=== PATIENT | male | born 1985 | race African-American/Black ===

== ENCOUNTER 2018-12-20 08:32 | Emergency (ER) | payer MEDICAID ==
[~2018-12-20] VITALS: Ht 175.3 cm; Wt 70.0 kg
[~2018-12-20 08:32] MED LIST: FOLIC ACID; MULTIVITAMINS; SUDAFED; VITAMIN D
[2018-12-20] MEDS ORDERED: SODIUM CHLORIDE 0.9% 1,000 ML IV ONE (09:14)
[2018-12-20] MEDS ORDERED: TERBUTALINE SULFATE 1MG/ML VIAL SUBCUT ONE ×2 (09:15)
[2018-12-20] MEDS ORDERED: LIDOCAINE HCL 4% CREAM 76GM TUBE TP ONE (09:45)
[2018-12-20 10:58] VITALS: BP 122/76
== END 2018-12-20 11:00 | disposition home or self-care (01) ==
LOC: ER 08:32
DX: N48.30 Priapism, unspecified (principal); Z90.49 Acquired absence of other specified parts of digestive tract; Z86.2 Personal history of diseases of the blood and blood-forming organs and certain disorders involving the immune mechanism; Z88.0 Allergy status to penicillin; Z79.899 Other long term (current) drug therapy
CPT/HCPCS: 96372; 99283; J3105; J7030; Z7610

== ENCOUNTER 2018-12-25 00:35 | Inpatient (IN) | payer MEDICAID ==
[~2018-12-25] VITALS: Ht 175.3 cm; Wt 70.3 kg
[2018-12-25] MEDS ORDERED: MORPHINE SULFATE 4 MG/ML CPJ (NOT FOR IM USE) IV STA (01:49)
[2018-12-25] MEDS ORDERED: SODIUM CHLORIDE 0.9% 1,000 ML IV ONE (01:49)
[2018-12-25] MEDS ORDERED: DIPHENHYDRAMINE 50MG/ML VIAL IV ONE ×2 (02:00→04:45)
[2018-12-25 02:08] LABS: CHLORIDE 104 mEq/L (98-107)
[2018-12-25 02:10] LABS: HEMATOCRIT. 28.4 % (42.0-52.0); HEMOGLOBIN. 9.9 g/dL (14.0-18.0); MEAN CORPUSCULAR HEMOGLOBIN 33.5 pg (28.0-32.0); MEAN CORPUSCULAR VOLUME 96.5 fL (80.0-94.0); PLATELET 350 x1000/uL (130-400); RED BLOOD CELL COUNT 2.94 mill/uL (4.7-6.1); RED CELL DISTRIBUTION WIDTH 19.3 % (11.6-14.6)
[2018-12-25 04:02] LABS: NUCLEATED RED BLOOD CELLS 2 /100 WBC; PLATELET ESTIMATE NORMAL
[2018-12-25 04:17] LABS: CLARITY URINE CLEAR (CLEAR); COLOR URINE YELLOW (YELLOW); KETONES URINE 2+ (NEGATIVE); LEUKOCYTE ESTERASE URINE NEGATIVE (NEGATIVE); NITRITE URINE NEGATIVE (NEGATIVE); OCCULT BLOOD URINE NEGATIVE (NEGATIVE); PROTEIN URINE NEGATIVE (NEGATIVE); SPECIFIC GRAVITY URINE 1.009 (1.005-1.030)
[2018-12-25] MEDS ORDERED: MORPHINE SULFATE 4 MG/ML CPJ (NOT FOR IM USE) IV ONE (04:45)
[2018-12-25] MEDS ORDERED: TERBUTALINE SULFATE 2.5MG TABLET PO STA (06:23)
[2018-12-25] MEDS ORDERED: TERBUTALINE SULFATE 1MG/ML VIAL SUBCUT ONE (07:00)
[2018-12-25 08:00] VITALS: BP 135/92
[2018-12-25] MEDS ORDERED: ONDANSETRON HCL 4MG/2ML INJ IV PRN (08:45)
[2018-12-25] MEDS ORDERED: SODIUM CHLORIDE 0.9% 1,000 ML IV SCH (08:45)
[2018-12-25] MEDS ORDERED: ACETAMINOPHEN 325MG TABLET PO PRN (08:45)
[2018-12-25] MEDS ORDERED: MORPHINE SULFATE 2 MG/ML CPJ (NOT FOR IM USE) IV PRN (08:45)
[2018-12-25] MEDS ORDERED: FOLIC ACID 1MG TABLET PO SCH (09:00)
[2018-12-25 09:06] VITALS: BP 135/92
[2018-12-25] MEDS: HYDROMORPHONE HCL/PF 2MG/ML CPJ IV PRN ×5 (10:27→19:50)
[2018-12-25 12:00] VITALS: BP 131/85
[2018-12-25 16:00] VITALS: BP 135/78
[2018-12-25] MEDS ORDERED: TERBUTALINE SULFATE 1MG/ML VIAL SUBCUT NR (16:00)
[2018-12-25 17:39] VITALS: BP 135/78
[2018-12-25 20:00] VITALS: BP 123/85
== END 2018-12-25 20:50 | disposition home or self-care (01) | DRG 662 ==
LOC: ER 00:35 → 6EST 04:52 → EDBEDREQ 04:54 → EDBEDREQTM 04:54 → ENRESERV 07:02
PROVIDERS: ADMIT Internal Medicine; ATTEND Internal Medicine
DX: D57.00 Hb-SS disease with crisis, unspecified (principal); D72.829 Elevated white blood cell count, unspecified; Z88.0 Allergy status to penicillin; N48.30 Priapism, unspecified
CPT/HCPCS: 36415; 71045; 81003; 84145; 85044; 93970; 99285; J1170; J1200; J2270; J3105; J7030

== ENCOUNTER 2018-12-29 08:28 | Emergency (ER) | payer MEDICAID ==
[~2018-12-29] VITALS: Ht 175.3 cm; Wt 70.0 kg
[2018-12-29] MEDS ORDERED: ONDANSETRON HCL 4MG/2ML INJ IV STA (09:08)
[2018-12-29] MEDS ORDERED: SODIUM CHLORIDE 0.9% 1,000 ML IV ONE (09:08)
[2018-12-29] MEDS ORDERED: MORPHINE SULFATE 4 MG/ML CPJ (NOT FOR IM USE) IV STA (09:08)
[2018-12-29] MEDS ORDERED: TERBUTALINE SULFATE 2.5MG TABLET PO STA (09:14)
[2018-12-29] MEDS ORDERED: TERBUTALINE SULFATE 1MG/ML VIAL SUBCUT ONE ×2 (11:15→12:15)
[2018-12-29 12:32] VITALS: BP 143/71
== END 2018-12-29 14:18 | disposition home or self-care (01) ==
LOC: ER 08:28
DX: N48.30 Priapism, unspecified (principal); D57.1 Sickle-cell disease without crisis; Z88.0 Allergy status to penicillin; Z79.899 Other long term (current) drug therapy
CPT/HCPCS: 96372; 99283; J3105; J7030

== ENCOUNTER 2022-12-26 21:24 | Emergency (ER) | payer MEDICAID ==
[~2022-12-26] VITALS: Ht 175.3 cm; Wt 75.0 kg
[2022-12-26 21:49] VITALS: O2SAT 95
[2022-12-26] MEDS ORDERED: HYDROMORPHONE HCL/PF 2MG/ML CPJ IV ONE (22:45)
[2022-12-26] MEDS ORDERED: ONDANSETRON HCL 4MG/2ML INJ IV ONE (22:45)
[2022-12-26] MEDS ORDERED: SODIUM CHLORIDE 0.45% 1,000 ML IV ONE (22:45)
[2022-12-26 23:10] LABS: HEMATOCRIT. 28.1 % (42.0-52.0); HEMOGLOBIN. 9.8 g/dL (14.0-18.0); MEAN CORPUSCULAR HEMOGLOBIN 32.1 pg (28.0-32.0); MEAN CORPUSCULAR HGB CONC 35.1 g/dL (31.0-37.0); MEAN CORPUSCULAR VOLUME 91.6 fL (80.0-94.0); MEAN PLATELET VOLUME 8.3 fl (7.4-10.4); PLATELET 315 x1000/uL (130-400); RED BLOOD CELL COUNT 3.07 mill/uL (4.7-6.1); RED CELL DISTRIBUTION WIDTH 20.7 % (11.6-14.6); WHITE BLOOD COUNT 16.1 x1000/uL (4.5-11.0)
[2022-12-26 23:11] LABS: DIFFERENTIAL COMMENT 1
[2022-12-26 23:12] LABS: CHLORIDE 109 mEq/L (98-107); INDEX HEMOLYSI 3 (1-3); INDEX ICTERIC 2 (1-4); INDEX LIPEMIC 1 (1-3); POTASSIUM 3.9 mEq/L (3.5-5.1); SODIUM 140 mEq/L (136-145)
[2022-12-26 23:25] LABS: ALANINE AMINOTRANSFERASE 26 IU/L (13-61); ALBUMIN 4.5 g/dL (3.4-5.0); ASPARTATE AMINOTRANSFERASE 41 IU/L (15-37); BILIRUBIN TOTAL 2.2 mg/dL (0.1-1.0); CALCIUM 9.5 mg/dL (8.5-10.1); CARBON DIOXIDE 26 mEq/L (21-32); CREATININE 0.9 mg/dL (0.6-1.3); GLUCOSE 133 mg/dL (70-105); PROTEIN TOTAL 7.7 g/dL (6.0-8.3); UREA NITROGEN BLOOD 11 mg/dL (7-21)
[2022-12-27 00:07] LABS: ANISOCYTOSIS 2+; NUCLEATED RED BLOOD CELLS 1 /100 WBC; OVALOCYTES 1+; PLATELET ESTIMATE NORMAL
[2022-12-27 00:08] LABS: HYPOCHROMASIA 2+; TARGET CELLS FEW
[2022-12-27] MEDS ORDERED: HYDROMORPHONE HCL/PF 2MG/ML CPJ IV ONE (00:30)
[2022-12-27 01:09] LABS: CLARITY URINE CLEAR (CLEAR); COLOR URINE DARK YELLOW (YELLOW); GLUCOSE URINE NEGATIVE (NEGATIVE); KETONES URINE NEGATIVE (NEGATIVE); LEUKOCYTE ESTERASE URINE NEGATIVE (NEGATIVE); NITRITE URINE NEGATIVE (NEGATIVE); OCCULT BLOOD URINE NEGATIVE (NEGATIVE); PH URINE 8.5 (4.5-8.0); PROTEIN URINE NEGATIVE (NEGATIVE); SPECIFIC GRAVITY URINE 1.014 (1.005-1.030)
[2022-12-27 01:25] VITALS: BP 118/64; PULSE 86; RESP 20; TEMP 98
== END 2022-12-27 01:45 | disposition left against medical advice (07) ==
LOC: ER 22:28
DX: D57.00 Hb-SS disease with crisis, unspecified (principal); D72.829 Elevated white blood cell count, unspecified; R07.9 Chest pain, unspecified; Z88.0 Allergy status to penicillin; Z88.8 Allergy status to other drugs, medicaments and biological substances; Z98.890 Other specified postprocedural states
CPT/HCPCS: 99285; 96374; 71045; 96375; 80053; 85025; 85044; 36415; 93005; 81003; 96376; J1170 ×2